=== PATIENT | male | born 1995 | race Two or more races ===

== ENCOUNTER 2024-05-20 19:49 | Emergency (ER) | payer BC ==
[~2024-05-20] VITALS: Ht 188 cm; Wt 112.5 kg
[2024-05-20 21:43] LABS: HEMATOCRIT 41.7 % (39.0-48.0); HEMOGLOBIN 14.3 g/dL (13-16.00); MEAN CELL VOLUME 83.2 fL (80.0-100.00); MEAN CORPUSCULAR HEMOGLOBIN 28.5 pg (27.00-32.0); MEAN CORPUSCULAR HGB CONC 34.2 g/dl (32.0-36.0); PLATELET COUNT 245 K/uL (150-450); RED BLOOD COUNT 5.01 M/uL (4.00-6.00); RED CELL DISTRIBUTION WIDTH 14.1 % (11.5-14.5)
[2024-05-20 22:29] LABS: CALCIUM 9.4 mg/dL (8.5-10.1); CREATININE SERUM 1.35 mg/dL (0.70-1.30); GFR 62.05; POTASSIUM 3.95 mEq/L (3.5-5.1)
[2024-05-20] MEDS ORDERED: DEXAMETHASONE SODIUM PHOSPHATE 4 MG/ML VIAL IM ONE (22:45)
[2024-05-20] MEDS ORDERED: DEXAMETHASONE SODIUM PHOSPHATE 4 MG/ML VIAL ONE (22:49)
== END 2024-05-20 22:59 | disposition home or self-care (01) ==
LOC: ER 19:50
PROVIDERS: General Practice
DX: U07.1 COVID-19 (principal)